=== PATIENT | female | born 1985 ===

== ENCOUNTER 2017-01-01 16:07 | Emergency (ER) | payer OTHER ==
[2017-01-01 16:36] VITALS: TEMP 98
--- NOTE | 2017-01-01 16:56 | ED PDOC ---
Arrival/HPI - General Chief Complaint: Breast Problem Time Seen by Provider: 01/01/17 16:45 Historian: Patient - History of Present Illness Narrative History of Present Illness (Text): 01/01/17 16:53 Lanie Coronel is a 31 year old female, with no significant past medical history, presents to the emergency department complaining of small lump on right breast associated with pain to area since yesterday night. Denies fever, chills, history of trauma to area, headache, dizziness, nausea, vomiting, diarrhea, or any other complaints at this time. Time/Duration: Other (yesterday night ) Symptom Onset: Gradual Symptom Course: Unchanged Severity Level: Mild Activities at Onset: Light Past Medical History - Provider Review Nursing Documentation Reviewed: Yes - Infectious Disease Hx of Infectious Diseases: None - Reproductive Menopause: No - Psychiatric Hx Substance Use: No - Anesthesia Hx Anesthesia: No Hx Anesthesia Reactions: No Hx Malignant Hyperthermia: No Family/Social History - Physician Review Nursing Documentation Reviewed: Yes Family/Social History: No Known Family HX Smoking Status: Never Smoked Hx Alcohol Use: No Hx Substance Use: No Allergies/Home Meds Allergies/Adverse Reactions: Allergies No Known Allergies Allergy (Verified 01/01/17 16:31) Review of Systems - Physician Review All systems were reviewed & negative as marked: Yes - Review of Systems Constitutional: Normal. absent: Fatigue, Fevers Respiratory: Normal. absent: SOB, Cough Cardiovascular: Normal. absent: Chest Pain Gastrointestinal: Normal Musculoskeletal: Other (Right breast pain with small lump ) Neurological: Normal. absent: Headache, Dizziness Psychiatric: Normal Physical Exam Vital Signs Reviewed: Yes Vital Signs Temp Pulse Resp BP Pulse Ox 01/01/17 19:06 71 17 125/78 99 01/01/17 17:33 69 18 124/75 98 01/01/17 16:35 98.0 F 75 18 126/77 98 01/01/17 16:26 98 F 75 18 126/77 98 Temperature: Afebrile Blood Pressure: Normal Pulse: Regular Respiratory Rate: Normal Appearance: Positive for: Well-Appearing, Non-Toxic, Comfortable Pain Distress: None Mental Status: Positive for: Alert and Oriented X 3 - Systems Exam Head: Present: Atraumatic, Normocephalic Pupils: Present: PERRL Conjunctiva: Present: Normal Respiratory/Chest: Present: Clear to Auscultation, Good Air Exchange. No: Respiratory Distress, Accessory Muscle Use Cardiovascular: Present: Regular Rate and Rhythm, Normal S1, S2. No: Murmurs Breast/Axillary: Present: Other (right breast tenderess to 9 O'clock position. small area of induration without fluctuance. Solution Professional RN Tracy ). No: Discoloration, Erythema, Fluctuance Neurological: Present: GCS=15, CN II-XII Intact, Speech Normal Skin: Present: Warm, Dry, Normal Color. No: Rashes Psychiatric: Present: Alert, Oriented x 3, Normal Insight, Normal Concentration Medical Decision Making ED Course and Treatment: 01/01/17 17:01 Impression: A 31 year old female who presents to the emergency department complaining of right breast pain since last night. Plan: -- test -- R.Breast ultrasound -- Reassess and disposition Progress Notes: 01/01/17 17:02 01/01/17 18:[address] tenorio. low suspicion for abscess. possible mass. recommends repeat US outpt for reassessment. pt informed of results. advsed outpt f/u and return precautions 01/01/17 18:37 pt notified of results advise outpt f/u 01/04/17 11:34 discussed results bedside at length with melly george at bedside as naturopathic oncology provider. pt verbalized understanding of needed outpt f/u. - RAD Interpretation Radiology Orders: 01/01/17 16:49 BREAST LIMITED RT [US] Stat - Medication Orders Current Medication Orders: Discontinued Medications Acetaminophen (Tylenol 325mg Tab) 975 mg PO STAT STA Stop: 01/01/17 17:04 Last Admin: 01/01/17 17:18 Dose: 975 MG - Scribe Statement The provider has reviewed the documentation as recorded by the Corinne Blackwood Provider Attestation: All medical record entries made by the Corinne were at my direction and personally dictated by me. I have reviewed the chart and agree that the record accurately reflects my personal performance of the history, physical exam, medical decision making, and the department course for this patient. I have also personally directed, reviewed, and agree with the discharge instructions and disposition. Disposition/Present on Arrival - Present on Arrival Any Indicators Present on Arrival: No History of DVT/PE: No History of Uncontrolled Diabetes: No Urinary Catheter: No History of Decub. Ulcer: No History Surgical Site Infection Following: None - Disposition Have Diagnosis and Disposition been Completed?: Yes Diagnosis: Breast pain Disposition: HOME/ ROUTINE Disposition Time: 18:34 Condition: STABLE Discharge Instructions (ExitCare): Breast Mass (ED) Print Language: CANADIAN Additional Instructions: please see clinic and specialist. return to er with worsening symptoms or concerns. you will need a repeat US to evaluate your breast. Prescriptions: Naproxen 500 mg PO BID PRN #14 tab PRN Reason: Pain, Mild (1-3) Referrals: PCP,NO [Primary Care Provider] - [facility] [Outside] - Follow up with primary [facility] [Outside] - Follow up with primary [facility] [Outside] - Follow up with primary
--- NOTE | 2017-01-01 18:39 | US ---
PROCEDURE: Ultrasound right breast HISTORY: breast pain r/o abscess COMPARISON: Not available TECHNIQUE: Targeted ultrasound examination of the area of focal pain in the right breast was performed. FINDINGS: In the 9 o'clock axis, 3 cm from the nipple, there is an elongated hypoechoic heterogeneous structure. It measures approximately 1.0 x 1.2 x 0.5 cm. There is a possibility that this represents a distended duct with an intraductal mass. However, this is not certain on the basis of this examination. There is no blood flow demonstrated within this structure on color Doppler interrogation. There is no surrounding hypervascularity. No other solid or cystic mass is identified in the targeted region of the right breast. IMPRESSION: Suspicious solid mass versus ductal ectasia with intraductal mass in the 9 o'clock axis of the right breast corresponding to the area of focal tenderness as indicated by the patient. The patient should return for additional evaluation to include bilateral diagnostic mammography. At that time, it is advisable that the patient undergo repeat ultrasound examination with radiologist present for complete evaluation of this finding. BIRADS 0 Incomplete - Need additional imaging evaluation to include bilateral diagnostic mammography and repeat diagnostic right breast ultrasound examination with radiologist present. . Patient will be contacted.
[2017-01-01 19:07] VITALS: BP 125/78; PULSE 71; RESP 17; O2SAT 99
== END 2017-01-01 19:07 | disposition home or self-care (01) ==
LOC: ED 16:07
DX: N64.4 Mastodynia (principal)